=== PATIENT | female | born 1935 | race Caucasian/White ===

== ENCOUNTER 2016-10-31 09:43 | Outpatient (CLI) | payer MEDICARE ==
[2016-10-31 10:39] LABS: Hemoglobin A1c 5.7 % (4.0-6.0)
[2016-10-31 11:01] LABS: Thyroid Stimulating Hormone 2.637 uIU/mL (0.35-4.94)
[2016-10-31 12:49] LABS: Vitamin D, 25 Hydroxy 22.2 ng/mL (> 30.0)
[2016-10-31 17:28] LABS: Folate (Folic Acid) 13.8 ng/mL (7.0-31.4)
[2016-11-03 06:16] LABS: Antinuclear AB Negative (Negative)
== END 2016-10-31 09:44 ==
LOC: MADLAB 09:43
PROVIDERS: ATTEND Student in an Organized Health Care Education/Training Program
DX: E55.9 Vitamin D deficiency, unspecified (principal); R41.3 Other amnesia; E53.1 Pyridoxine deficiency; E53.8 Deficiency of other specified B group vitamins; E51.9 Thiamine deficiency, unspecified
CPT/HCPCS: 36415; 82306; 82607; 82746; 83036; 84207; 84425; 84443; 85652; 86038; 86140; 86592